=== PATIENT | male | born 1930 | race Caucasian/White ===

== ENCOUNTER → 2016-07-01 | Outpatient (CLI) | payer OTHER ==
[~2016-07-01] MED LIST: ALDACTONE25 MG PO; ALPRAZOLAM0.5 MG PO; ASPIR 8181 MG PO; BACITRACIN OINT30 GM EXT; BRILINTA90 MG PO; CARDURA 2MG TAB2 MG PO; CORDARONE 200M200 MG PO; DULCOLAX5 MG PO; FERROUS SULFAT325 M2 PO; GLUCERNA237 ML PO; HYDRALAZINE HCL25 MG PO; IPRAT-ALBUT 0.5-3 ML INH; IRON325 M1 PO; LANTUS100 UNIT/1 SQ; LASIX 40 MG TAB40 MG PO; LASIX40 MG PO; LIPITOR TAB 2020 MG PO; LISINOPRIL40 MG PO; LOPRESSOR 25 MG25 MG PO; MEGESTROL400 MG/10 PO; NITROSTAT 0.40.4 MG SL; NITROSTAT0.4 MG SL; NORVASC 5 MG TAB5 MG PO; PLAVIX 75 MG TA75 MG PO; PREDNISONE 10 M10 MG PO; PREDNISONE 5 MG5 MG PO; PREDNISONE10 MG PO; PREDNISONE20 MG PO; SENOKOT-S TABL1 EACH PO; TYLENOL 325MG325 MG PO
== END ==
LOC: HEART 5 11:02
DX: R06.02 Shortness of breath (principal); Z87.09 Personal history of other diseases of the respiratory system
CPT/HCPCS: 71010-FX

== ENCOUNTER → 2016-07-14 | Outpatient (CLI) | payer OTHER | LOC: CT 07-08 09:00 | PROVIDERS: Internal Medicine Pulmonary Disease | DX: J84.89 Other specified interstitial pulmonary diseases (principal); E11.65 Type 2 diabetes mellitus with hyperglycemia; J90 Pleural effusion, not elsewhere classified; R91.8 Other nonspecific abnormal finding of lung field | CPT/HCPCS: 36415; 36600; 71250; 80048; 82803 ==

== ENCOUNTER 2016-07-20 02:56 | Inpatient (IN) | payer OTHER ==
[~2016-07-20] VITALS: Ht 162.6 cm; Wt 88.0 kg
[~2016-07-20 02:56] MED LIST changes: -ALDACTONE25 MG PO; -ALPRAZOLAM0.5 MG PO; -BRILINTA90 MG PO; -CORDARONE 200M200 MG PO; -DULCOLAX5 MG PO; -FERROUS SULFAT325 M2 PO; -IRON325 M1 PO; -LASIX40 MG PO; -MEGESTROL400 MG/10 PO; -NITROSTAT0.4 MG SL; -PLAVIX 75 MG TA75 MG PO; -PREDNISONE10 MG PO; -SENOKOT-S TABL1 EACH PO
[2016-07-20 03:37] LABS: HEMOGLOBIN 10.8 gm/dl (14.0-17.5); RED BLOOD COUNT 3.8 M/UL (4.20-5.50); WHITE BLOOD COUNT 26.9 K/UL (4.5-11.0)
[2016-07-21 06:52] LABS: HEMOGLOBIN 10.5 gm/dl (14.0-17.5); RED BLOOD COUNT 3.69 M/UL (4.20-5.50); WHITE BLOOD COUNT 21.9 K/UL (4.5-11.0)
[2016-07-22 06:48] LABS: HEMOGLOBIN 9.7 gm/dl (14.0-17.5); RED BLOOD COUNT 3.47 M/UL (4.20-5.50)
[2016-07-22 07:25] LABS: WHITE BLOOD COUNT 16.1 K/UL (4.5-11.0)
[2016-07-23 03:40] LABS: HEMOGLOBIN 8.7 gm/dl (14.0-17.5); WHITE BLOOD COUNT 12.9 K/UL (4.5-11.0)
[2016-07-23 03:50] LABS: RED BLOOD COUNT 2.97 M/UL (4.20-5.50)
[2016-07-24 03:32] LABS: HEMOGLOBIN 9.1 gm/dl (14.0-17.5); RED BLOOD COUNT 3.17 M/UL (4.20-5.50); WHITE BLOOD COUNT 11.9 K/UL (4.5-11.0)
[2016-07-25 06:29] LABS: RED BLOOD COUNT 2.91 M/UL (4.20-5.50); WHITE BLOOD COUNT 11.7 K/UL (4.5-11.0)
[2016-07-26 03:45] LABS: HEMOGLOBIN 8.5 gm/dl (14.0-17.5); RED BLOOD COUNT 3.08 M/UL (4.20-5.50); WHITE BLOOD COUNT 12.5 K/UL (4.5-11.0)
[2016-07-27 03:55] LABS: HEMOGLOBIN 8.5 gm/dl (14.0-17.5); RED BLOOD COUNT 3.06 M/UL (4.20-5.50); WHITE BLOOD COUNT 10.7 K/UL (4.5-11.0)
[2016-07-29 04:19] LABS: HEMOGLOBIN 8.5 gm/dl (14.0-17.5); RED BLOOD COUNT 3.09 M/UL (4.20-5.50); WHITE BLOOD COUNT 11.6 K/UL (4.5-11.0)
[2016-07-30 04:56] LABS: HEMOGLOBIN 8.8 gm/dl (14.0-17.5); RED BLOOD COUNT 3.18 M/UL (4.20-5.50)
[2016-07-31 06:02] LABS: HEMOGLOBIN 9.5 gm/dl (14.0-17.5); RED BLOOD COUNT 3.45 M/UL (4.20-5.50); WHITE BLOOD COUNT 16.4 K/UL (4.5-11.0)
[2016-08-01 06:27] LABS: HEMOGLOBIN 9.1 gm/dl (14.0-17.5); RED BLOOD COUNT 3.33 M/UL (4.20-5.50); WHITE BLOOD COUNT 19.1 K/UL (4.5-11.0)
[2016-08-02 05:39] LABS: HEMOGLOBIN 8.6 gm/dl (14.0-17.5); RED BLOOD COUNT 3.15 M/UL (4.20-5.50)
[2016-08-02 05:44] LABS: WHITE BLOOD COUNT 12.9 K/UL (4.5-11.0)
[2016-08-03 04:32] LABS: HEMOGLOBIN 8.4 gm/dl (14.0-17.5); RED BLOOD COUNT 3.04 M/UL (4.20-5.50)
[2016-08-03 04:33] LABS: WHITE BLOOD COUNT 24.9 K/UL (4.5-11.0)
[2016-08-04 06:45] LABS: HEMOGLOBIN 8.9 gm/dl (14.0-17.5); RED BLOOD COUNT 3.16 M/UL (4.20-5.50); WHITE BLOOD COUNT 21.8 K/UL (4.5-11.0)
[2016-08-05 06:29] LABS: HEMOGLOBIN 8.7 gm/dl (14.0-17.5); RED BLOOD COUNT 3.15 M/UL (4.20-5.50); WHITE BLOOD COUNT 17.9 K/UL (4.5-11.0)
[2016-08-05] MEDS ORDERED: CORDARONE 200M200 MG PO (12:46)
[2016-08-05] MEDS ORDERED: ALPRAZOLAM0.5 MG PO (12:46)
[2016-08-05] MEDS ORDERED: GLUCERNA237 ML PO (12:47)
[2016-08-05] MEDS ORDERED: FERROUS SULFAT325 M2 PO (12:47)
[2016-08-05] MEDS ORDERED: BRILINTA90 MG PO (12:48)
[2016-08-05] MEDS ORDERED: ALDACTONE25 MG PO (12:48)
[2016-08-05] MEDS ORDERED: NITROSTAT0.4 MG SL (12:51)
[2016-08-05] MEDS ORDERED: TYLENOL 325MG325 MG PO (12:59)
[2017-01-07] MEDS ORDERED: ALPRAZOLAM0.5 MG PO (01:10)
[2017-01-07] MEDS ORDERED: DULCOLAX5 MG PO (01:11)
[2017-01-07] MEDS ORDERED: ASPIR 8181 MG PO (01:11)
[2017-01-07] MEDS ORDERED: IRON325 M1 PO (01:12)
[2017-01-07] MEDS ORDERED: CORDARONE 200M200 MG PO (01:12)
[2017-01-07] MEDS ORDERED: ALDACTONE25 MG PO (01:12)
[2017-01-07] MEDS ORDERED: LIPITOR TAB 2020 MG PO (01:13)
[2017-01-07] MEDS ORDERED: LOPRESSOR 25 MG25 MG PO (01:13)
[2017-01-07] MEDS ORDERED: BRILINTA90 MG PO (01:13)
[2017-01-07] MEDS ORDERED: LASIX40 MG PO (01:14)
[2017-01-07] MEDS ORDERED: MEGESTROL400 MG/10 PO (01:15)
== END 2016-08-05 15:49 | disposition home health service (06) | DRG 246 ==
LOC: ER1 02:56 → ZEROF 04:50 → CCU 04:50 → MED SURG 4 07-30 18:23
PROVIDERS: Emergency Medicine; Family Medicine; Internal Medicine Infectious Disease; Internal Medicine Nephrology; Internal Medicine Pulmonary Disease; ADMIT Hospitalist
PROC: 5A09457 Assistance with Respiratory Ventilation, 24-96 Consecutive Hours, Continuous Positive Airway Pressure (ICD-10-PCS; 2016-07-20)
PROC: 5A1955Z Respiratory Ventilation, Greater than 96 Consecutive Hours (ICD-10-PCS; 2016-07-22)
PROC: 0BH17EZ Insertion of Endotracheal Airway into Trachea, Via Natural or Artificial Opening (ICD-10-PCS; 2016-07-22)
PROC: 0B978ZX Drainage of Left Main Bronchus, Via Natural or Artificial Opening Endoscopic, Diagnostic (ICD-10-PCS; 2016-07-22)
PROC: 0B958ZX Drainage of Right Middle Lobe Bronchus, Via Natural or Artificial Opening Endoscopic, Diagnostic (ICD-10-PCS; 2016-07-22)
PROC: 02HV33Z Insertion of Infusion Device into Superior Vena Cava, Percutaneous Approach (ICD-10-PCS; 2016-07-23)
PROC: B548ZZA Ultrasonography of Superior Vena Cava, Guidance (ICD-10-PCS; 2016-07-23)
PROC: 027034Z Dilation of Coronary Artery, One Artery with Drug-eluting Intraluminal Device, Percutaneous Approach (ICD-10-PCS; principal; 2016-07-29)
PROC: 4A023N7 Measurement of Cardiac Sampling and Pressure, Left Heart, Percutaneous Approach (ICD-10-PCS; 2016-07-29)
PROC: B2111ZZ Fluoroscopy of Multiple Coronary Arteries using Low Osmolar Contrast (ICD-10-PCS; 2016-07-29)
DX: I13.0 Hypertensive heart and chronic kidney disease with heart failure and stage 1 through stage 4 chronic kidney disease, or unspecified chronic kidney disease (principal); I50.43 Acute on chronic combined systolic (congestive) and diastolic (congestive) heart failure; I21.4 Non-ST elevation (NSTEMI) myocardial infarction; J96.22 Acute and chronic respiratory failure with hypercapnia; J96.21 Acute and chronic respiratory failure with hypoxia; R57.0 Cardiogenic shock; N17.0 Acute kidney failure with tubular necrosis; G93.40 Encephalopathy, unspecified; E87.0 Hyperosmolality and hypernatremia; E87.2 Acidosis; M62.82 Rhabdomyolysis; E11.22 Type 2 diabetes mellitus with diabetic chronic kidney disease; N18.3 Chronic kidney disease, stage 3 (moderate); I48.0 Paroxysmal atrial fibrillation; E87.6 Hypokalemia; I25.10 Atherosclerotic heart disease of native coronary artery without angina pectoris; D63.1 Anemia in chronic kidney disease; D50.9 Iron deficiency anemia, unspecified; J84.10 Pulmonary fibrosis, unspecified; J44.9 Chronic obstructive pulmonary disease, unspecified; E11.65 Type 2 diabetes mellitus with hyperglycemia; E11.649 Type 2 diabetes mellitus with hypoglycemia without coma; I27.2 Other secondary pulmonary hypertension; I08.1 Rheumatic disorders of both mitral and tricuspid valves; D72.829 Elevated white blood cell count, unspecified; T38.0X5A Adverse effect of glucocorticoids and synthetic analogues, initial encounter; R00.1 Bradycardia, unspecified; T46.2X5A Adverse effect of other antidysrhythmic drugs, initial encounter; K80.20 Calculus of gallbladder without cholecystitis without obstruction; R63.0 Anorexia; Z68.33 Body mass index [BMI] 33.0-33.9, adult; B35.1 Tinea unguium; R59.9 Enlarged lymph nodes, unspecified; Z72.0 Tobacco use; Z85.038 Personal history of other malignant neoplasm of large intestine; Z79.4 Long term (current) use of insulin; Z79.02 Long term (current) use of antithrombotics/antiplatelets; Z79.52 Long term (current) use of systemic steroids; Z79.82 Long term (current) use of aspirin; Z79.899 Other long term (current) drug therapy; Z88.6 Allergy status to analgesic agent; Z88.5 Allergy status to narcotic agent; Z88.0 Allergy status to penicillin; Z88.8 Allergy status to other drugs, medicaments and biological substances; Z90.49 Acquired absence of other specified parts of digestive tract; Z98.42 Cataract extraction status, left eye; Z98.41 Cataract extraction status, right eye; Z96.1 Presence of intraocular lens; Z98.890 Other specified postprocedural states; Z82.49 Family history of ischemic heart disease and other diseases of the circulatory system; Z83.3 Family history of diabetes mellitus
CPT/HCPCS: ECHO; 31500; 36415; 36600; 71010; 74000; 80048; 80053; 81001; 82043; 82436; 82550; 82553; 82570; 82607; 82728; 82746; 82803; 82962; 83540; 83550; 83605; 83735; 83874; 83880; 84100; 84132; 84133; 84156; 84300; 84443; 84484; 85025; 85027; 85347; 85610; 85730; 87015; 87040; 87070; 87102; 87116; 87205; 89050; 92610; 93005; 93306; 94002; 94003; 94640; 94660; 94664; 96365; 96366; 96375; 97110; 97530; 99285; C1751; C1769; C1874; C1887; C9113; C9600; J0330; J0360; J0461; J0583; J0696; J1100; J1120; J1205; J1610; J1644; J1940; J2020; J2060; J2185; J2250; J2270; J2405; J2920; J2930; J3010; J3370; J3480; J7030; J7040; J7050; Q0163; Q9965

== ENCOUNTER 2016-08-16 08:44 | Inpatient (IN) | payer OTHER ==
[~2016-08-16] VITALS: Ht 162.6 cm; Wt 80.3 kg
[~2016-08-16 08:44] MED LIST changes: +ALDACTONE25 MG PO; +ALPRAZOLAM0.5 MG PO; +BRILINTA90 MG PO; +CORDARONE 200M200 MG PO; +FERROUS SULFAT325 M2 PO; +NITROSTAT0.4 MG SL
[2016-08-16 09:29] LABS: HEMOGLOBIN 9.7 gm/dl (14.0-17.5); RED BLOOD COUNT 3.55 M/UL (4.20-5.50)
[2016-08-17 03:42] LABS: HEMOGLOBIN 8.3 gm/dl (14.0-17.5)
[2016-08-17 03:44] LABS: RED BLOOD COUNT 3.06 M/UL (4.20-5.50); WHITE BLOOD COUNT 11.4 K/UL (4.5-11.0)
[2016-08-18 04:37] LABS: HEMOGLOBIN 7.9 gm/dl (14.0-17.5); RED BLOOD COUNT 2.85 M/UL (4.20-5.50)
[2016-08-20] MEDS ORDERED: GLUCERNA237 ML PO (15:57)
[2016-08-20] MEDS ORDERED: LASIX40 MG PO ×2 (16:03→16:12)
[2016-08-20] MEDS ORDERED: PLAVIX 75 MG TA75 MG PO (16:13)
[2016-08-20] MEDS ORDERED: PREDNISONE10 MG PO (16:13)
[2016-08-20] MEDS ORDERED: LISINOPRIL40 MG PO (16:13)
[2016-08-20] MEDS ORDERED: SENOKOT-S TABL1 EACH PO (16:13)
[2017-01-07] MEDS ORDERED: ALPRAZOLAM0.5 MG PO (01:10)
[2017-01-07] MEDS ORDERED: DULCOLAX5 MG PO (01:11)
[2017-01-07] MEDS ORDERED: ASPIR 8181 MG PO (01:11)
[2017-01-07] MEDS ORDERED: IRON325 M1 PO (01:12)
[2017-01-07] MEDS ORDERED: ALDACTONE25 MG PO (01:12)
[2017-01-07] MEDS ORDERED: CORDARONE 200M200 MG PO (01:12)
[2017-01-07] MEDS ORDERED: LOPRESSOR 25 MG25 MG PO (01:13)
[2017-01-07] MEDS ORDERED: LIPITOR TAB 2020 MG PO (01:13)
[2017-01-07] MEDS ORDERED: BRILINTA90 MG PO (01:13)
[2017-01-07] MEDS ORDERED: LASIX40 MG PO (01:14)
[2017-01-07] MEDS ORDERED: MEGESTROL400 MG/10 PO (01:15)
== END 2016-08-20 18:29 | disposition home health service (06) | DRG 291 ==
LOC: ER1 08:44 → ZEROF 12:56 → CCU 12:56 → M/S 08-19 14:50
PROVIDERS: Emergency Medicine; Internal Medicine Nephrology; ADMIT Internal Medicine
DX: I13.0 Hypertensive heart and chronic kidney disease with heart failure and stage 1 through stage 4 chronic kidney disease, or unspecified chronic kidney disease (principal); J96.21 Acute and chronic respiratory failure with hypoxia; J96.22 Acute and chronic respiratory failure with hypercapnia; I50.42 Chronic combined systolic (congestive) and diastolic (congestive) heart failure; I25.10 Atherosclerotic heart disease of native coronary artery without angina pectoris; J84.10 Pulmonary fibrosis, unspecified; I27.2 Other secondary pulmonary hypertension; E11.22 Type 2 diabetes mellitus with diabetic chronic kidney disease; N18.3 Chronic kidney disease, stage 3 (moderate); E11.65 Type 2 diabetes mellitus with hyperglycemia; D64.9 Anemia, unspecified; E78.5 Hyperlipidemia, unspecified; E66.9 Obesity, unspecified; Z68.32 Body mass index [BMI] 32.0-32.9, adult; Z91.81 History of falling; I25.2 Old myocardial infarction; Z85.038 Personal history of other malignant neoplasm of large intestine; Z96.1 Presence of intraocular lens; Z95.5 Presence of coronary angioplasty implant and graft; Z90.49 Acquired absence of other specified parts of digestive tract; Z87.01 Personal history of pneumonia (recurrent); Z88.5 Allergy status to narcotic agent; Z88.0 Allergy status to penicillin; Z88.8 Allergy status to other drugs, medicaments and biological substances; Z87.891 Personal history of nicotine dependence; Z79.1 Long term (current) use of non-steroidal anti-inflammatories (NSAID); Z79.82 Long term (current) use of aspirin; Z79.4 Long term (current) use of insulin; Z79.51 Long term (current) use of inhaled steroids; Z79.899 Other long term (current) drug therapy; Z86.79 Personal history of other diseases of the circulatory system; Z82.49 Family history of ischemic heart disease and other diseases of the circulatory system; Z83.3 Family history of diabetes mellitus
CPT/HCPCS: 36415; 36600; 71010; 80048; 80053; 81001; 82436; 82550; 82553; 82803; 82962; 83690; 83735; 83874; 83880; 84133; 84300; 84484; 85025; 85027; 85610; 85730; 87040; 87086; 93005; 94640; 94660; 94664; 96372; 96374; 96375; 97110; 97530; 99291; J1120; J1650; J1940; J1956; J2550; J2930